=== PATIENT | female | born 1995 | race Caucasian/White ===

== ENCOUNTER 2018-11-09 10:26 | Emergency (ER) | payer MEDICAID ==
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
[2018-11-09] MEDS ORDERED: OXYCODONE/APAP 5/325 TAB PO ONE (11:14)
[2018-11-09] MEDS ORDERED: ONDANSETRON DISINTEGRATING 4 MG TAB PO ONE (11:14)
[2018-11-09 11:31] VITALS: BP 134/94
== END 2018-11-09 11:35 | disposition home or self-care (01) ==
DX: K08.89 Other specified disorders of teeth and supporting structures (principal)

== ENCOUNTER 2018-11-12 12:09 | Emergency (ER) | payer MEDICAID ==
[2018-11-12] MEDS ORDERED: CLINDAMYCIN 600 MG/DEXTROSE 50 ML IV ONE (12:32)
[2018-11-12] MEDS ORDERED: DEXAMETHASONE 10 MG/ML VIAL IVP ONE (12:32)
--- NOTE | 2018-11-12 12:38 | EDPHY ---
H & P Stated Complaint: dental abcess l lower molar 11/09 seen here rx abx/pain meds/ not resolved Time Seen by Provider: 11/12/18 12:27 HPI/ROS: CHIEF COMPLAINT: Worsening tooth pain and new jaw swelling HISTORY OF PRESENT ILLNESS: 23-year-old female visiting from out of state seen the ER 4 days ago for complaints of odontalgia, prescribed amoxicillin, returns to the ER complaining of continued pain and new left mandibular swelling and pain . No trismus or drooling. No change in voice. No fever or chills. No chest pain. No dyspnea. No fever or chills. No otalgia. No otorrhea. REVIEW OF SYSTEMS: 10 systems reviewed and negative with the exception of the elements mentioned in the history of present illness PAST MEDICAL & SURGICAL HISTORY: No pertinent medical or surgical history SOCIAL HISTORY: Positive for marijuana smoking. PHYSICAL EXAM (Prior to examination, patient consented to physical exam, hands were washed and my usual and customary physical exam procedures followed) 1) GENERAL: Well-developed, well-nourished, alert and oriented. Appears to be in no acute distress. 2) HEAD: Normocephalic, atraumatic 3) HEENT: Pupils equal, round, reactive to light bilaterally. Sclera anicteric. Left mandibular and sub mandibular swelling and tenderness with no induration or erythema or overlying skin changes. No crepitus. [Nasopharynx, oropharynx, clear, no lesions. Moist mucous membranes. No tonsillar enlargement or exudate. Sublingual space is soft.. No pain. Submental space is soft. No pain. 4) NECK: Full range of motion, no meningeal signs. 5) LUNGS: Clear auscultation bilaterally, no wheezes, no rhonchi, no retractions. 6) HEART: Regular rate and rhythm, no murmur, no heave, no gallop. 7) ABDOMEN: No guarding, no rebound, no focal tenderness, negative McBurney's, negative Troncoso's, negative Rovsing's, negative peritoneal sign, 8) MUSCULOSKELETAL: Moving all extremities, no focal areas of tenderness, no obvious trauma. No peripheral edema or discoloration. 9) BACK: No CVA tenderness, no midline vertebral tenderness, no fluctuance, no step-off, no obvious trauma, no visual or palpable abnormality. 10) SKIN: No rash, no petechiae. 11) Psychiatric: Patient is oriented X 3, there is no agitation. DIFFERENTIAL DIAGNOSIS: In no particular order including but not limited to deep space infection, abscess, Dharmesh's angina, odontogenic infection - Personal History LMP (Females 10-55): IUD In Place Current Tetanus Diphtheria and Acellular Pertussis (TDAP): Yes - Medical/Surgical History Hx Asthma: No Hx Chronic Respiratory Disease: No Hx Diabetes: No Hx Cardiac Disease: No Hx Renal Disease: No Hx Cirrhosis: No Hx Alcoholism: No Hx HIV/AIDS: No Hx Splenectomy or Spleen Trauma: No Other PMH: healthy - Social History Smoking Status: Current some day smoker Constitutional: Initial Vital Signs Temperature (C) 37.3 C 11/12/18 12:14 Heart Rate 84 11/12/18 12:14 Respiratory Rate 18 11/12/18 12:14 Blood Pressure 124/90 H 11/12/18 12:14 O2 Sat (%) 95 11/12/18 12:14 O2 Delivery Mode Room Air Allergies/Adverse Reactions: No Known Allergies Allergy (Verified 11/12/18 12:13) Home Medications: Medication Instructions Recorded Amoxicillin Trihydrate [Amoxil] 500 mg PO TID 7 Days cap 11/09/18 oxyCODONE/APAP 5/325 [Percocet 1 - 2 tab PO Q4H PRN #10 tab 11/09/18 5/325 (*)] Clindamycin HCl [Clindamycin] 300 mg PO TID 7 Days cap 11/12/18 Medical Decision Making - Diagnostics Imaging Results: Imaging Impressions Neck CT 11/12/18 13:29 Impression: No evidence of neck mass or lymphadenopathy. Judy Marta was notified of these findings by telephone at 2:25 PM on 11/12/2018 Images reviewed myself ED Course/Re-evaluation: 12:37 p.m.: I reviewed the patient's old medical records. Will obtain CT of the neck to evaluate for deep space infection. This time doubt Dharmesh's angina. Will administer dose of IV clindamycin as well as Decadron. Care of patient under supervision of secondary supervising physician Dr Fortune with whom I discussed case. 2:45 p.m.: Re-evaluation. Discussed with the patient's friend her imaging results with the patient is sleeping appears comfortable. No evidence of deep space infection. Doubt Dharmesh's angina. Patient given dose of IV clindamycin, Decadron in the ER. Will be discharged with oral clindamycin oral surgery follow-up information. This time I do not think that hospitalization is indicated. - Data Points Laboratory Results: Laboratory Results 11/12/18 12:40 11/12/18 12:40 11/12/18 11/12/18 11/12/18 12:40 12:40 12:31 WBC 9.24 10^3/uL 10^3/uL (3.80-9.50) RBC 4.96 10^6/uL 10^6/uL (4.18-5.33) Hgb 14.8 g/dL g/dL (12.6-16.3) Hct 44.0 % % (38.0-47.0) MCV 88.7 fL fL (81.5-99.8) MCH 29.8 pg pg (27.9-34.1) MCHC 33.6 g/dL g/dL (32.4-36.7) RDW 11.8 % % (11.5-15.2) Plt Count 277 10^3/uL 10^3/uL (150-400) MPV 10.3 fL fL (8.7-11.7) Neut % (Auto) 68.5 % % (39.3-74.2) Lymph % (Auto) 22.3 % % (15.0-45.0) Craig % (Auto) 7.9 % % (4.5-13.0) Eos % (Auto) 0.9 % % (0.6-7.6) Baso % (Auto) 0.2 % L % (0.3-1.7) Nucleat RBC Rel Count 0.0 % % (0.0-0.2) Absolute Neuts (auto) 6.33 10^3/uL 10^3/uL (1.70-6.50) Absolute Lymphs (auto) 2.06 10^3/uL 10^3/uL (1.00-3.00) Absolute Monos (auto) 0.73 10^3/uL 10^3/uL (0.30-0.80) Absolute Eos (auto) 0.08 10^3/uL 10^3/uL (0.03-0.40) Absolute Basos (auto) 0.02 10^3/uL 10^3/uL (0.02-0.10) Absolute Nucleated RBC 0.00 10^3/uL 10^3/uL (0-0.01) Immature Gran % 0.2 % % (0.0-1.1) Immature Gran # 0.02 10^3/uL 10^3/uL (0.00-0.10) Sodium 139 mEq/L mEq/L (135-145) Potassium 4.3 mEq/L mEq/L (3.5-5.2) Chloride 106 mEq/L mEq/L (97-110) Carbon Dioxide 25 mEq/l mEq/l (22-31) Anion Gap 8 mEq/L mEq/L (6-14) BUN 10 mg/dL mg/dL (7-23) Creatinine 0.6 mg/dL mg/dL (0.6-1.0) Estimated GFR > 60 Glucose 92 mg/dL mg/dL (70-100) Calcium 9.3 mg/dL mg/dL (8.5-10.4) Beta HCG, Qual NEGATIVE Medications Given: Discontinued Medications Dexamethasone (Decadron Injection) 10 mg IVP EDNOW ONE Stop: 11/12/18 12:33 Last Admin: 11/12/18 12:49 Dose: 10 mg Clindamycin Phosphate/Dextrose (Cleocin 600 Mg (Premix)) 50 mls @ 100 mls/hr IV EDNOW ONE PRN Reason: Protocol Stop: 11/12/18 13:01 Last Admin: 11/12/18 12:48 Dose: 50 mls Morphine Sulfate (Morphine) 4 mg IVP EDNOW ONE Stop: 11/12/18 12:33 Last Admin: 11/12/18 12:48 Dose: 4 mg Departure - Departure Disposition: Home, Routine, Self-Care Clinical Impression: Dental infection Condition: Good Instructions: Toothache (ED) Additional Instructions: Return to the ER immediately if you cannot swallow, have drooling, fevers, neck stiffness, cannot open your jaw, or any other symptoms that concern you. Stop taking your amoxicillin antibiotic and take the clindamycin antibiotic instead. Referrals: Delroy Corbin DDS [Doctor of Dental Surgery] - 1-2 days without fail Prescriptions: Clindamycin HCl [Clindamycin] 300 mg PO TID 7 Days cap
[2018-11-12] MEDS ORDERED: DEXAMETHASONE 4 MG/ML VIAL ONE (12:44)
[2018-11-12 13:01] LABS: PLATELET COUNT 277 10^3/uL (150-400)
[2018-11-12] MEDS ORDERED: IOPAMIDOL (ISOVUE 370) 100 ML BTL IV ONE (14:03)
[2018-11-12 15:03] VITALS: BP 114/80
== END 2018-11-12 15:12 | disposition home or self-care (01) ==
DX: K04.7 Periapical abscess without sinus (principal)
CPT/HCPCS: 96365; J1100; J2270; Q9967